=== PATIENT | male | born 1975 | race Caucasian/White ===

== ENCOUNTER 2016-07-08 08:21 | Day surgery (SDC) | payer BC, OTHER ==
[~2016-07-08 08:21] MED LIST: ACETAMINOPHEN 500 MG TABLET PO PRN; HYDROmorphone HCL 2 MG/ML VIAL IV PRN; MAG HYDROX/ALUMINUM HYD/SIMETH 30 ML UDC PO PRN; MAGNESIUM HYDROXIDE 30 ML UDC PO PRN; ONDANSETRON HCL/PF 2 MG/ML VIAL IV PRN; PROMETHAZINE HCL 25 MG in DEXTROSE 5 % IN WATER 50 ML IV PRN; RINGERS SOLUTION,LACTATED 1,000 ML IV PRN; ZOLPIDEM TARTRATE 5 MG TABLET PO PRN; ceFAZolin SODIUM 1 GM VIAL IV PRN; diphenhydrAMINE HCL 50 MG/ML VIAL IV PRN; oxyCODONE HCL/ACETAMINOPHEN 1 TAB TABLET PO PRN
--- OUTSIDE RECORDS SUMMARY | 2016-07-08 08:24 | XMS REPORT | Continuity of Care Document ---
:1975 Author Organization [facility] ([facility]) Address [address] [place] [address] Phone [phone] Care Team Providers Name Role Phone Unavailable Primary Care Provider Unavailable Source Comments This disclosure is being made pursuant to the Care Everywhere program, applicable federal and state laws, and may not contain all informaitonavailable regarding this patient.[facility] ([facility]) Active Allergies and Adverse Reactions Not on File Current Medications Not on file Active Problems Not on file Social History Tobacco Use Types Packs/Day Years Used Date Never Assessed Plan of Care Health Maintenance Due Date Last Done Comments Hepatitis B Vaccine (1 of 3 - Primary Series) 1975 Tdap Vaccine 1987 Lipid Disorder Screening 1994 MMR Vaccine 1994 Td Vaccine 1994 Influenza Vaccine: Seasonal (#1) 09/22/2015 Results from Last 3 Months Not on file
--- NOTE | 2016-07-08 08:50 | PN ---
Progess Note - Interim Narrative: 07/08/16 08:45 H&P Update Patient seen and examined in pre-op. He sustained a R distal biceps rupture while trying to help lift a friend's boat onto a trailer. He was seen in Orthopedic clinic yesterday by one of our PAs Mark Kirby who diagnosed him with a distal biceps tendon rupture. On exam he has obvious deformity with proximal retraction of the biceps muscle belly. He ecchymosis of the proximal volar forearm. On hook testing, he has no palpable biceps tendon. He has full sensation to light touch in all nerve distributions of the RUE. He has brisk capillary refill. I counseled him on treatment options. 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 The risks and benefits, including but not limited to, bleeding, infection, neurovascular injury, re-rupture, stiffness, weakness in elbow flexion and forearm supination, and wound complications were explained to the patient and he wishes to proceed. Rios Bernal MD
[2016-07-08] MEDS ORDERED: BUPIVACAINE HCL/EPINEPHRINE 50 ML VIAL IJ ONE (10:30)
[2016-07-08] MEDS ORDERED: HYDROmorphone HCL 2 MG/ML VIAL IV PRN ×2 (12:00→12:22)
--- NOTE | 2016-07-08 12:02 | OR ---
Operative Report - Dictated Report Narrative: Date: 07/08/2016 Physician: Rios Bernal M.D. Whiskey Filterer: Aiden Perrin PA-C Preoperative diagnosis: Right distal biceps tendon rupture Postoperative diagnosis: Right distal biceps tendon rupture Procedure: Right distal biceps tendon repair Anesthesia: Gen. with local Complications: None Estimated blood loss: Minimal Tourniquet time: 60 min @ 250 mmHg Specimens: None Retained implants: Perrin and nephew Endobutton Drains: None Indications: Mr. Sidhu Is a 41 year-old male who sustained a rupture of his right distal biceps tendon while trying to help move his friends boat on its trailer. He was seen in my clinic and the diagnosis was obvious based on his physical exam. After discussion of treatment options as well as the risks and benefits of surgery including but not limited to infection, bleeding, neurovascular injury, elbow stiffness, loss of elbow flexion strength, loss of supination strength, and re-rupture, he wished to proceed with surgery. He presents today for repair of his right distal biceps tendon. Procedure: After marking the correct extremity in the preoperative holding area, a timeout was performed in the operating room. IV antibiotics consisting of 2 g of Ancef were administered prior to the procedure. Gen. anesthesia was induced by the anesthesia provider without complication. Patient was positioned supine with an arm table and all bony prominences were well-padded. The patient's right upper extremity was then prepped and draped in the usual sterile fashion. A sterile tourniquet was placed around the upper arm. The arm was exsanguinated using an Esmarch bandage and the tourniquet was inflated to 250 mmHg. We then turned our attention to the antecubital fossa. A longitudinal incision was made along the medial border of the brachioradialis curving proximally along the antecubital fossa skin fold. A combination of blunt dissection and electrocautery was used to dissect down through the subcutaneous tissue. The lateral antebrachial cutaneous nerve was identified and carefully retracted laterally. We explored the wound proximally and identified the ruptured biceps tendon which was easily retrieved out of the wound and held with an Aaliyah clamp. The tendon was noted to have some tendinopathy and thickening. The distal tendon was debrided using tenotomy scissors and a sharp knife back to healthy tendon. A #2 FiberWire was then run proximally about 5 cm and back down distally in a running whip-stitch fashion leaving two free suture limbs. The distal tendon was then sized at 7 mm. The suture was passed through the central holes of a Perrin and Nephwe Endobutton and the knot was tied on the leaving approximately 2 mm between the Endobutton and the tendon stump. The biceps tendon was then wrapped with a moist Kerlix bandage and we turned our attention back to the wound. Combination of blunt and sharp dissection was carried out down to the level of the radial tuberosity being careful to protect the neurovascular structures. The arm was held in maximal supination and the radial tuberosity was exposed. A small ~ 5 mm stump of tendon remained at the insertion site giving us the correct positioning for our pin. A Beath pin was then drilled through the radial tuberosity at the insertion site and out through the dorsal aspect of the forearm. The position of our Beath pin was confirmed on fluoroscopy. A 7 mm acorn reamer was then advanced down over our Beath pin and used to ream the near cortex of the radial tuberosity. Next the Endobutton drill bit was used to drill the far cortex for the Endobutton. The passing sutures were then passed through the eyelet of the Beath pin and pulled through our drill tunnel. The Endobutton was then pulled through the tunnel and flipped using the trailing suture limb. We confirmed that the Endobutton had been passed through our tunnel and was appropriately flipped via fluoroscopy. We took the elbow through a gentle range of motion to confirm good seating of the tendon in the tunnel. At this point we were happy with our repair and the wound was copiously irrigated with normal saline. The skin edges were anesthetized with 20 mL of 0.5% marcaine with epinephrine. The wound was then closed in layered fashion using 4-0 Vicryl in an interrupted deep dermal fashion followed by 4-0 nylon to close the skin. Dressings consisting of Xeroform, 4 x 4, soft roll were applied followed by a long-arm posterior splint with the elbow at 90. All sponge, needle, blade, and instrument counts were correct prior to closing the wounds. The patient was awoken and transferred to the post-anesthesia care unit in stable condition.
[2016-07-08] MEDS ORDERED: HYDROmorphone HCL 2 MG/ML VIAL IV ONE (12:30)
[2016-07-08 14:33] VITALS: BP 129/73
[2016-07-08] MEDS ORDERED: SENNOSIDES/DOCUSATE SODIUM 1 TAB TABLET PO SCH (21:00)
== END 2016-07-08 08:22 | disposition home or self-care (01) ==
LOC: AMB 08:21
PROVIDERS: ATTEND Orthopaedic Surgery
PROC: 0LM30ZZ Reattachment of Right Upper Arm Tendon, Open Approach (ICD-10-PCS; principal; 2016-07-08 10:00)
DX: S46.211A Strain of muscle, fascia and tendon of other parts of biceps, right arm, initial encounter (principal); F17.200 Nicotine dependence, unspecified, uncomplicated; Z68.29 Body mass index [BMI] 29.0-29.9, adult; X50.0XXA Overexertion from strenuous movement or load, initial encounter